=== PATIENT | female | born 1970 | race Caucasian/White ===

== ENCOUNTER 2018-05-10 18:17 | Inpatient (IN) | payer SELFPAY ==
[~2018-05-10] VITALS: Ht 160 cm; Wt 81.2 kg
--- NOTE | 2018-05-10 18:20 | NUR ---
PT AMBULATED TO BED 8
[2018-05-10 18:26] VITALS: BP 152/98
--- NOTE | 2018-05-10 18:31 | NUR ---
PT GIVEN URINE CUP AMBULATED TO BR
--- NOTE | 2018-05-10 18:31 | NUR ---
PT C/O ABD PAIN DIFFUSE SINCE THIS AM, +N/V, DENIES DIARRHEA. NO OTHE COMPLAINTS. HX---DM, HTN MEDS---METFORMIN
[2018-05-10] MEDS ORDERED: NACL 0.9% 1,000 ML IV ONE (18:40)
[2018-05-10] MEDS ORDERED: ONDANSETRON 4 MG/2 ML VIAL IVP ONE (18:40)
[2018-05-10] MEDS ORDERED: MORPHINE SULFATE 4 MG/ML SYR IVP ONE (18:40)
[2018-05-10 19:08] LABS: BASOPHILS # (AUTO) 0.1 K/uL (0.00-0.22); BASOPHILS % (AUTO) 0.6 % (0.0-2.0); EOSINOPHILS # (AUTO) 0.1 K/uL (0-0.4); EOSINOPHILS % (AUTO) 0.6 % (0.0-4.0); HEMATOCRIT 43.4 % (36-48); HEMOGLOBIN 14.6 g/dL (12.0-16.0); LYMPHOCYTES # (AUTO) 2.2 K/uL (2.5-16.5); LYMPHOCYTES % (AUTO) 20.2 % (20.5-51.1); MEAN CORPUSCULAR HEMOGLOBIN 28 pg (27-31); MEAN CORPUSCULAR HGB CONC 34 g/dL (33-37); MEAN CORPUSCULAR VOLUME 82.7 fL (80-94); MONOCYTES # (AUTO) 0.4 K/uL (0.8-1.0); MONOCYTES % (AUTO) 3.9 % (1.7-9.3); NEUTROPHILS # (AUTO) 8.2 K/uL (1.8-7.7); NEUTROPHILS % (AUTO) 74.7 % (42.2-75.2); PLATELET COUNT (AUTO) 313 K/uL (140-450); RED BLOOD CELL COUNT(AUTO) 5.24 MIL/uL (4.20-5.40); RED CELL DISTRIBUTION WIDTH 15.8 % (11.6-13.7); WHITE BLOOD COUNT (AUTO) 10.9 K/uL (4.8-10.8)
--- NOTE | 2018-05-10 19:10 | NUR ---
PT RETURN FROM RADIOLOGY
--- NOTE | 2018-05-10 19:16 | NUR ---
PT LAYING BED , VSS, STATES "FEELS BETTER".
[2018-05-10 19:27] LABS: ANION GAP 10.6 (8-16); CARBON DIOXIDE 27.1 mmol/L (21-32); CREATININE 0.6 mg/dL (0.6-1.3); POTASSIUM 3.7 mmol/L (3.5-5.1)
--- NOTE | 2018-05-10 19:27 | NUR ---
Dr. Rosenberg evaluating patient at bedside.
[2018-05-10 19:33] LABS: ALBUMIN 3.9 g/dL (3.4-5.0); TOTAL BILIRUBIN 0.6 mg/dL (0.0-1.0)
[2018-05-10 19:35] LABS: APPEARANCE,URINE CLEAR (CLEAR); BILIRUBIN,URINE NEGATIVE (NEGATIVE); BLOOD, URINE SMALL (NEGATIVE); COLOR,URINE YELLOW (YELLOW); LEUKOCYTE ESTERASE ,URINE NEGATIVE (NEGATIVE); NITRITE, URINE NEGATIVE (NEGATIVE); UGLUCOSE >=1000 (NEGATIVE)
[2018-05-10 19:50] LABS: RBC,URINE 0-5 (RARE) /HPF (0-5)
[2018-05-10 19:53] LABS: WBC,URINE 0-5 (RARE) /HPF (0-5)
[2018-05-10] MEDS ORDERED: NACL 0.9% 1,000 ML IV SCH (20:28)
[2018-05-10] MEDS ORDERED: ZOLPIDEM 5 MG TAB PO PRN (20:30)
[2018-05-10] MEDS ORDERED: ACETAMINOPHEN 325 MG TAB PO PRN (20:30)
[2018-05-10] MEDS ORDERED: ONDANSETRON 4 MG/2 ML VIAL IM/IVP PRN (20:30)
[2018-05-10] MEDS ORDERED: HYDROcodone/APAP 5/325 MG 1 TAB TAB PO PRN (20:30)
[2018-05-10] MEDS ORDERED: LORazepam 2 MG/ML VIAL IM/IVP PRN (20:30)
[2018-05-10] MEDS ORDERED: DOCUSATE SODIUM 100 MG GELCAP PO PRN (20:30)
--- NOTE | 2018-05-10 20:46 | NUR ---
Dr. Orr evaluating patient at bedside.
[2018-05-10] MEDS ORDERED: metroNIDAZOLE 500 MG/NS PREMIX 100 ML IV SCH (21:00)
[2018-05-10 21:05] LABS: CHOL/HDL RATIO 4.7 (1-4.5); MAGNESIUM 1.5 mg/dL (1.8-2.4); PHOSPHORUS 3.2 mg/dL (2.5-4.9); THYROID STIMULATING HORMONE 0.39 uIU/mL (0.34-3.74)
--- NOTE | 2018-05-10 21:06 | NUR ---
ADMITTING DR. EVALUATING PT AT BEDSIDE
--- NOTE | 2018-05-10 21:15 | NUR ---
Patient will be admitted to care of DR YOUNGBLOOD. Admited to TELE. Will go to [id number]. Belongings list completed. Report to DENNIS URIBE.
--- NOTE | 2018-05-10 21:15 | NUR ---
ADMITTED A 47 Y/O FEMALE FROM [facility] WITH CHIEF COMPLAINS OF ABDOMINAL PAIN. PATIENT AAOX4, INDONESIAN SPEAKING. MRSA NASAL SWAB DONE. PERSONAL BELONGINGS AT PATIENT BEDSIDE. EXPLAINED PLAN OF CARE TO THE PATIENT AND FAMILY MEMBERS. SKIN INTACT. ADMISSION CARE DONE AND CARRY OUT ORDERS.NG PLACEMENT DONE CONNECTED TO LOW INTERMITTENT SUCTION,PATIENT TOLERATED WELL. BED IN LOW LOCKED POSITION. EXPLAINED TO PATIENT TO USE THE CALL LIGHT FOR ASSISTANCE. ALL NEED ATTENDED. WILL CONTINUE TO MONITOR.
[2018-05-10 21:28] LABS: PROTHROMBIN TIME 9.8 secs (10.8-13.4)
[2018-05-10] MEDS ORDERED: DEXTROSE 50% 50 ML SYR IVP PRN (21:30)
[2018-05-10] MEDS ORDERED: PIPERACILLIN/TAZOBACTAM 3.375 GM VIAL IV ONE (21:52)
[2018-05-10] MEDS: PIPERACILLIN/TAZOBACTAM 3.375 GM in DEXTROSE 5% 50 ML IV SCH (21:55)
[2018-05-10] MEDS: DEXT 5% /NACL 0.9% 1,000 ML IV SCH (21:59)
[2018-05-10] MEDS ORDERED: MAG SULF 2000 MG/WATER PREMIX 50 ML IV SCH (22:00)
[2018-05-10 22:29] LABS: BARBITURATE, URINE NEG. ng/ml (NEG <=200); BENZODIAZEPINE, URINE NEG. ng/mL (NEG <=200); CANNABINOID, URINE NEG. ng/mL (NEG <=50); COCAINE, URINE NEG. ng/mL (NEG <=300); OPIATE, URINE NEG. ng/mL (NEG <=2000); PHENCYCLIDINE SCREEN,URINE NEG. ng/mL (NEG <=25)
[2018-05-11] VITALS: BP 127/66
--- NOTE | 2018-05-11 | NUR ---
V/S TAKEN AND RECORDED. PLACE PATIENT IN COMFORTABLE POSITION. NO S/S OF DISTRESS NOTED. DENIES PAIN AT THIS TIME. CALL LIGHT WITHIN REACH. WILL CONTINUE TO MONITOR.
--- NOTE | 2018-05-11 02:00 | NUR ---
NOTIFIED DR. ANNA ABOUT THE XR FOLLOW THROUGH TO BE DONE AT AM PER RAD. TECH.
--- NOTE | 2018-05-11 02:00 | NUR ---
XR SMALL BOWEL FOLLOW-THROUGH WILL BE DONE IN AM PER TEST HOLE DRILLER. DR. ANNA AWARE.
[2018-05-11 04:00] VITALS: BP 115/56
--- NOTE | 2018-05-11 04:02 | NUR ---
SEEN PATIENT ASLEEP. NO S/S OF DISTRESS NOTED AT THIS TIME.
[2018-05-11] MEDS: PIPERACILLIN/TAZOBACTAM 3.375 GM in DEXTROSE 5% 50 ML IV SCH (04:32)
[2018-05-11] MEDS ORDERED: PIPERACILLIN/TAZOBACTAM 3.375 GM VIAL IV ONE (04:33)
[2018-05-11] MEDS: BLOOD GLUCOSE MONITORING 1 DEV DEV FS SCH ×4 (06:00→20:02)
[2018-05-11] MEDS: INSULIN LISPRO SLIDING SCALE 100 UNITS/ML VIAL SUBQ PRN ×4 (06:01→20:01)
[2018-05-11] MEDS ORDERED: INSULIN LISPRO SLIDING SCALE 100 UNITS/ML VIAL SUBQ PRN (06:15)
[2018-05-11] MEDS ORDERED: DEXTROSE 50% 50 ML SYR IVP PRN (06:15)
[2018-05-11 07:12] LABS: HEMATOCRIT 39.4 % (36-48); HEMOGLOBIN 13.1 g/dL (12.0-16.0); MEAN CORPUSCULAR HEMOGLOBIN 28 pg (27-31); MEAN CORPUSCULAR HGB CONC 33 g/dL (33-37); MEAN CORPUSCULAR VOLUME 83.5 fL (80-94); NEUTROPHILS % (AUTO) 67.2 % (42.2-75.2); PLATELET COUNT (AUTO) 266 K/uL (140-450); RED BLOOD CELL COUNT(AUTO) 4.72 MIL/uL (4.20-5.40); RED CELL DISTRIBUTION WIDTH 15.7 % (11.6-13.7); WHITE BLOOD COUNT (AUTO) 11.4 K/uL (4.8-10.8)
[2018-05-11 07:13] LABS: BASOPHILS # (AUTO) 0.1 K/uL (0.00-0.22); BASOPHILS % (AUTO) 0.6 % (0.0-2.0); EOSINOPHILS # (AUTO) 0.2 K/uL (0-0.4); EOSINOPHILS % (AUTO) 1.3 % (0.0-4.0); MONOCYTES # (AUTO) 0.6 K/uL (0.8-1.0); MONOCYTES % (AUTO) 4.9 % (1.7-9.3); NEUTROPHILS # (AUTO) 7.7 K/uL (1.8-7.7)
[2018-05-11 07:19] LABS: MAGNESIUM 1.9 mg/dL (1.8-2.4); PHOSPHORUS 3.4 mg/dL (2.5-4.9)
--- NOTE | 2018-05-11 07:20 | NUR ---
ENDORSEMENT GIVEN TO AM SHIFT NURSE AT BEDSIDE FOR CONTINUITY OF CARE. PATIENT IN STABLE CONDITION.
[2018-05-11 07:21] LABS: ANION GAP 14.3 (8-16); CARBON DIOXIDE 25.4 mmol/L (21-32); CREATININE 0.7 mg/dL (0.6-1.3); POTASSIUM 3.7 mmol/L (3.5-5.1)
[2018-05-11] MEDS ORDERED: BLOOD GLUCOSE MONITORING 1 DEV DEV FS SCH (07:30)
--- NOTE | 2018-05-11 07:30 | NUR ---
RECEIVED PT FROM ART GLASS DESIGNER RN AT BEDSIDE. PT IS AAOX4, CZECH SPEAKING, DAUGHTER AT BEDSIDE. SKIN INTACT. NG TUBE IN PLACE. SUCTION IS OFF AT THIS TIME. PT HAVING SMALL BOWEL FOLLOW THROUGH, NEXT X RAY IS AT 0900. BED IN LOWEST POSITION. CALL LIGHT WITHIN REACH. POC DISCUSSED WITH PT AND HER DAUGHTER, PT VERBALIZED UNDERSTANDING. WILL CONTINUE TO MONITOR.
[2018-05-11 08:00] VITALS: BP 123/77
[2018-05-11] MEDS ORDERED: LACTOBACILLUS RHAMNOSUS GG 1 EACH CAP PO SCH (09:00)
[2018-05-11] MEDS ORDERED: glipiZIDE ER 5 MG TABER PO SCH (09:20)
[2018-05-11] MEDS ORDERED: METF850T PO (09:24)
[2018-05-11] MEDS ORDERED: GLIP5TER PO (09:25)
[2018-05-11] MEDS ORDERED: glipiZIDE 5 MG TAB NG SCH (09:45)
[2018-05-11] MEDS: LACTOBACILLUS RHAMNOSUS GG 1 EACH CAP NG SCH (09:56)
--- NOTE | 2018-05-11 10:00 | NUR ---
PT DENIES ANY PAIN. SCHEDULED MED GIVEN VIA NG TUBE. PT TOLERATED WELL. NEXT X RAY FOR SMALL BOWEL FOLLOW THRU IS 1100.
--- NOTE | 2018-05-11 11:49 | NUR ---
PT STATED SHE PASSED GAS, BUT NO BM YET. PT C/O WANTING TO VOMIT DUE TO NG TUBE. WILL ADMINISTER ZOFRAN.
[2018-05-11] MEDS: DEXT 5% /NACL 0.9% 1,000 ML IV SCH ×2 (11:59→23:00)
[2018-05-11 12:00] VITALS: BP 129/81
[2018-05-11] MEDS: PIPER/TAZO 3.375GM/D5W PREMIX 50 ML IV SCH ×2 (12:00→20:08)
[2018-05-11 15:47] VITALS: BP 138/84
--- NOTE | 2018-05-11 17:31 | NUR ---
NG TUBE DC'D, PT TOLERATED WELL.
--- NOTE | 2018-05-11 19:30 | NUR ---
ENDORSED PT TO PATIENT SAFETY COORDINATOR, PT IN STABLE CONDITION. RT IS GIVING PT BREATHING TX.
--- NOTE | 2018-05-11 19:31 | NUR ---
RECEIVED PATIENT AWAKE RESTING SITTING ON BED ACCOMPANIED BY FAMILY MEMBER. PATIENT AA0X4, AMBULATORY, EXPLAINED PLAN OF CARE AND VERBALIZED UNDERSTANDING. CALL LIGHT WITHIN REACH. BED IN LOW LOCKED POSITION. WILL CONTINUE TO MONITOR.
[2018-05-11 20:00] VITALS: BP 122/66
--- NOTE | 2018-05-11 21:00 | NUR ---
SCHEDULE MEDICATION GIVEN. TOLERATED WELL. V/S TAKEN AND RECORDED. BS TAKEN NO COVERAGE PER SLIDING SCALE. NO S/S OF DISTRESS NOTED.
--- NOTE | 2018-05-12 | NUR ---
SEEN PATIENT RESTING COMFORTABLE ON BED. CALL LIGHT WITHIN REACH. BED IN LOW LOCKED POSITION. NO S/S OF DISTRESS NOTED AT THIS TIME. WILL CONTINUE TO MONITOR.
[2018-05-12 04:00] VITALS: BP 98/50
[2018-05-12] MEDS: PIPER/TAZO 3.375GM/D5W PREMIX 50 ML IV SCH (04:46)
--- NOTE | 2018-05-12 06:01 | NUR ---
PATIENT HAS BEEN SCREENED AND CATEGORIZED MODERATE NUTRITION RISK. PATIENT WILL BE SEEN WITHIN 3-5 DAYS OF ADMISSION. 05/13/18-05/15/18 EDWAR WRAY MS, RDN
[2018-05-12] MEDS: INSULIN LISPRO SLIDING SCALE 100 UNITS/ML VIAL SUBQ PRN (06:19)
[2018-05-12] MEDS: BLOOD GLUCOSE MONITORING 1 DEV DEV FS SCH (06:23)
[2018-05-12] MEDS: DEXT 5% /NACL 0.9% 1,000 ML IV SCH (06:56)
--- NOTE | 2018-05-12 07:20 | NUR ---
ENDORSEMENT GIVEN TO AM SHIFT RN AT BEDSIDE FOR CONTINUITY OF CARE. PATIENT IN STABLE CONDITION.
--- NOTE | 2018-05-12 07:45 | NUR ---
PATIENT WAS AWAKE, ALERT, SITTING ON CHAIR. RESPIRATION EVEN, UNLABOR ON ROOM AIR. SKIN DRY AND WARM. IV PATENT AND INTACT. DENIED PAIN, N/V. PLAN OF CARE WAS DISCUSSED WITH PATIENT. BED AT LOW POSITION, SIDE RAILS UP. CALL LIGHT WITHIN REACH
[2018-05-12 08:00] VITALS: BP 128/83
[2018-05-12] MEDS ORDERED: metFORMIN 850 MG TAB PO SCH (09:00)
[2018-05-12] MEDS ORDERED: glipiZIDE 5 MG TAB NG SCH (09:00)
[2018-05-12] MEDS ORDERED: glipiZIDE 10 MG TAB PO SCH (09:15)
[2018-05-12] MEDS: LACTOBACILLUS RHAMNOSUS GG 1 EACH CAP NG SCH (09:17)
[2018-05-12] MEDS ORDERED: METF850T PO (09:18)
[2018-05-12] MEDS ORDERED: GLIP10TA3 PO (09:18)
--- NOTE | 2018-05-12 10:17 | NUR ---
DISCHARGE INSTRUCTION AND PRESCRIPTION WERE GIVEN AND EXPLAINED TO PATIENT VIA VP ACCOUNT DIRECTOR [id number]. PATIENT VERBALIZED UNDERSTANDING. IV WAS REMOVED, CATHETER INTACT, NO ACTIVE BLEEDING SEEN. PATIENT REFUSED VACCINATION.
--- NOTE | 2018-05-12 10:33 | NUR ---
PATIENT WAS ESCORTED OUT BY STAFF, AMBULATORY WITH STEADY GAIT. ALL BELONGINGS WERE TAKEN WITH THE PATIENT. PATIENT IS STABLE AT THIS TIME
[2018-05-13] MEDS ORDERED: glipiZIDE 10 MG TAB PO SCH (06:30)
== END 2018-05-12 10:34 | disposition home or self-care (01) | DRG 389 ==
LOC: MED 18:17 → MTU 20:28
PROVIDERS: ADMIT General Practice; ATTEND General Practice
PROC: 0D9670Z Drainage of Stomach with Drainage Device, Via Natural or Artificial Opening (ICD-10-PCS; principal; 2018-05-11)
DX: K56.600 Partial intestinal obstruction, unspecified as to cause (principal); E87.1 Hypo-osmolality and hyponatremia; D68.59 Other primary thrombophilia; E11.69 Type 2 diabetes mellitus with other specified complication; E83.42 Hypomagnesemia; E11.65 Type 2 diabetes mellitus with hyperglycemia; I10 Essential (primary) hypertension; N83.201 Unspecified ovarian cyst, right side; E78.5 Hyperlipidemia, unspecified; E66.9 Obesity, unspecified; Z68.31 Body mass index [BMI] 31.0-31.9, adult; Z98.891 History of uterine scar from previous surgery
CPT/HCPCS: 36415; 71045; 74018; 74250; 80048; 80053; 80305; 81001; 82948; 83036; 83605; 83690; 83735; 84100; 84134; 84443; 84703; 85025; 85610; 85730; 87040; 87081; 87086; 93925; 93970; 96361; 96374; 96375; 99285; J1815; J2270; J2405; J2543; J3475; J7030; J7042; J7060; Q0092

== ENCOUNTER 2019-03-22 18:19 | Emergency (ER) | payer SELFPAY ==
[~2019-03-22] VITALS: Ht 152.4 cm; Wt 79.6 kg
[~2019-03-22 18:19] MED LIST: GLIP10TA3 PO; METF850T PO
[2019-03-22 18:29] VITALS: BP 148/93
--- NOTE | 2019-03-22 18:29 | NUR ---
PT BIB C/O PAINFULL URINATION AT 810 THAT RADIATES TO LOWER BACK X2 DAYS. -N/V/D OR FEVER. VSS. ER TO SEE PT. MEDHX:DM, HTN RX:[id number]
--- NOTE | 2019-03-22 18:56 | NUR ---
LUKAS NGUYEN AT BEDSIDE
[2019-03-22] MEDS ORDERED: KETOROLAC 60 MG/2 ML VIAL IM ONE (19:00)
[2019-03-22] MEDS ORDERED: cefTRIAXone 1,000 MG in LIDOCAINE MPF 1% 2.1 ML IM ONE (19:00)
--- NOTE | 2019-03-22 19:18 | NUR ---
REPORT GIVEN TO YADIRA COLLINS
--- NOTE | 2019-03-22 19:19 | NUR ---
BEDSIDE REPORT RECEIVED FROM DENNIS SEXTON. TRANSFER OF CARE AT THIS TIME. PT JUST RECEIVED MEDICATION. NO COMPLAINTS AT THIS TIME.
[2019-03-22 20:02] VITALS: BP 114/62
--- NOTE | 2019-03-22 20:02 | NUR ---
Patient reports feeling much better. 2/10 pain. Patient discharged with v/s stable. Written and verbal after care instructions given and explained. Patient alert, oriented and verbalized understanding of instructions. Ambulatory with steady gait. All questions addressed prior to discharge. ID band removed. Patient advised to follow up with PMD. Rx of Keflex, Pyridium, and Ibuprofen given. Patient educated on indication of medication including possible reaction and side effects. Opportunity to ask questions provided and answered.
== END 2019-03-22 20:02 | disposition home or self-care (01) ==
LOC: MED 18:19
DX: N39.0 Urinary tract infection, site not specified (principal); E11.9 Type 2 diabetes mellitus without complications; I10 Essential (primary) hypertension; Z79.84 Long term (current) use of oral hypoglycemic drugs; Z88.8 Allergy status to other drugs, medicaments and biological substances
CPT/HCPCS: 81002; 81025; 87086; 96372; 99283; J0696; J1885; J2001; 87186